=== PATIENT | male | born 1970 | race American Indian/Alaskan Native ===

== ENCOUNTER 2021-10-28 15:54 | Emergency (ER) | payer SELFPAY ==
[2021-10-28 16:06] VITALS: BP 117/65
[2021-10-28] MEDS ORDERED: KETOROLAC 30 MG/1 ML INJ IM ONE (16:36)
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
== END 2021-10-28 18:17 | disposition home or self-care (01) ==
LOC: ED 15:54
DX: M54.2 Cervicalgia (principal); M54.9 Dorsalgia, unspecified; V89.2XXA Person injured in unspecified motor-vehicle accident, traffic, initial encounter; Y93.89 Activity, other specified; Y92.89 Other specified places as the place of occurrence of the external cause; Y99.8 Other external cause status
CPT/HCPCS: 96372; 99282; J1885